=== PATIENT | female | born 1990 | race Caucasian/White ===

== ENCOUNTER → 2022-01-27 10:28 | Outpatient (BNVA) | payer MEDICAID, SELFPAY | PROVIDERS: PCP Internal Medicine; Visit Provider Physician Assistant Surgical | DX: Z13.89 Encounter for screening for other disorder (principal) ==

== ENCOUNTER → 2022-02-07 11:07 | Outpatient (BNVA) | payer MEDICAID, SELFPAY | PROVIDERS: PCP Internal Medicine; Visit Provider Surgery | DX: Z13.89 Encounter for screening for other disorder (principal) ==

== ENCOUNTER 2022-02-11 08:03 | Outpatient (REF) | payer OTHER, SELFPAY ==
--- NOTE | ~2022-02-11 | XR_ITS ---
EXAMINATION: XR CHEST CLINICAL INFORMATION: Morbid/severe obesity. COMPARISON: None TECHNIQUE: 2 views of the chest were obtained. FINDINGS: No significant abnormality is noted involving the heart, lungs, mediastinum, bony thorax or soft tissues. XR/XR chest 2V IMPRESSION: Unremarkable chest examination.
--- NOTE | 2022-02-11 08:15 | ECG_ITS ---
Test Reason : E66.01 Blood Pressure : / mmHG Vent. Rate : 083 BPM Atrial Rate : 083 BPM P-R Int : 138 ms QRS Dur : 088 ms QT Int : 396 ms P-R-T Axes : 048 088 027 degrees QTc Int : 465 ms Sinus rhythm with marked sinus arrhythmia Otherwise normal ECG No significant changes when compared with the previous EKG of 06 dec 2014. Referred By: Josh Graves Electronically Signed By:JAMARI CALIX
[2022-02-11 08:41] LABS: MANUAL DIFF FLAG NO
[2022-02-11 09:10] LABS: Basophils Absolute Auto 0.1 X10*3/uL (0.0-0.2); Basophils Percent Auto 0.6 % (0-2); Eosinophils Absolute Auto 0.1 X10*3/uL (0.0-0.4); Eosinophils Percent Auto 1.7 % (0-4); Hematocrit 37.4 % (37.0-47.0); Hemoglobin 11.9 g/dl (12.0-16.0); Imm Gran Abs Auto 0.03 X10*3/uL (0.00-0.03); Imm Gran Pct Auto 0.4 % (0.0-0.4); Lymphocytes Absolute Auto 1.9 X10*3/uL (1.2-4.9); Lymphocytes Percent Auto 22.9 % (20-40); Mean Corpuscular HGB Conc 31.8 g/dl (31.0-35.0); Mean Corpuscular Hemoglobin 25.8 pg (27.0-33.0); Mean Platelet Volume 10.4 fL (9.4-12.3); Monocytes Absolute Auto 0.4 X10*3/uL (0.1-1.2); Neutrophils Absolute Auto 5.8 x10*3/uL (2.0-8.3); Neutrophils Percent Auto 69.4 % (45-73); Platelet Count 333 X10*3/uL (160-400); Red Blood Count 4.62 X10*6/uL (4.20-5.50); Red Cell Distribution Width 15.2 % (11.0-16.0); White Blood Count 8.3 X10*3/uL (4.8-10.8)
[2022-02-11 09:21] LABS: Estimated Average Glucose 105 mg/dL; Hemoglobin A1c % 5.3 %
[2022-02-11 09:40] LABS: Alanine Aminotransferase 61 U/L (0-31); Albumin Level 4.3 g/dL (3.5-5.0); Alkaline Phosphatase 79 U/L (39-117); Anion Gap 11 (12-20); Aspartate Amino Transferase 38 U/L (5-31); Bilirubin Total 0.4 mg/dL (0.0-1.0); Blood Urea Nitrogen 9 mg/dL (9-16); C Reactive Protein 1.54 mg/dL (< or = 0.50); Calcium 9.6 mg/dL (8.4-10.2); Carbon Dioxide 30 mmol/L (22-29); Chloride 104 mmol/L (96-108); Cholesterol 169 mg/dL; Estimated Glomerular Filt Rate > 60; Glucose Random 115 mg/dL (60-115); HDL Cholesterol 31 mg/dL; Iron 27 mcg/dL (30-160); LDL Cholesterol Calculated 115 mg/dl; Percent Iron Saturation 7 % (15-50); Potassium 4.1 mmol/L (3.3-5.1); Sodium 141 mmol/L (135-145); Total Iron Binding Capacity 377 mcg/dL (228-428); Total Protein 7.4 g/dL (6.5-8.0); Triglycerides 119 mg/dL; Unsaturated Iron Binding 350 ug/dL
[2022-02-11 10:17] LABS: Ferritin 46 ng/mL (10-122); TSH reflex Free T4 0.86 uIU/mL (0.32-4.0); Vitamin D 25-OH Total 10.2 ng/mL (>30)
[2022-02-11 10:23] LABS: Folate 19.1 ng/mL (> or = 4.0); Vitamin B12 602 pg/mL (200-900)
[2022-02-11 16:28] LABS: Insulin 25 uU/mL (2-29)
[2022-02-12 15:21] LABS: Calcium (PTHI) 9.6 mg/dL (8.6-10.2); PTHI 90 pg/mL (16-77)
[2022-02-15 06:31] LABS: Zinc 71 mcg/dL (60-130)
[2022-02-18 16:41] LABS: Vitamin B1 6 nmol/L (8-30)
[2022-02-19 00:11] LABS: Vitamin A 34 mcg/dL (38-98)
== END 2022-02-11 08:04 | disposition home or self-care (01) ==
LOC: HO.XRAY 08:03
PROVIDERS: Visit Provider Surgery
DX: E66.01 Morbid (severe) obesity due to excess calories (principal)
CPT/HCPCS: 36415; 71046; 80053; 80061; 82306; 82607; 82728; 82746; 83036; 83525; 83540; 83970; 84425; 84443; 84590; 84630; 85025; 86140; 93005

== ENCOUNTER → 2022-03-06 08:04 | Outpatient (BNVA) | payer OTHER, SELFPAY | PROVIDERS: PCP Internal Medicine; Visit Provider Dietitian, Registered | DX: E66.01 Morbid (severe) obesity due to excess calories (principal); Z71.3 Dietary counseling and surveillance | CPT/HCPCS: 97802 ==

== ENCOUNTER → 2022-03-20 08:15 | Outpatient (BNVA) | payer OTHER, SELFPAY | PROVIDERS: PCP Internal Medicine; Visit Provider Physician Assistant | DX: Z13.89 Encounter for screening for other disorder (principal) ==

== ENCOUNTER → 2022-05-02 11:12 | Outpatient (BNVA) | payer OTHER, SELFPAY | PROVIDERS: PCP Internal Medicine; Visit Provider Dietitian, Registered | DX: E66.01 Morbid (severe) obesity due to excess calories (principal); Z71.3 Dietary counseling and surveillance | CPT/HCPCS: 97802 ==

== ENCOUNTER 2022-05-21 08:27 | Outpatient (REF) | payer OTHER, SELFPAY ==
--- NOTE | ~2022-05-21 | FL_ITS ---
EXAMINATION: XR FLUOROSCOPY UPPER GI WITH AIR CLINICAL INFORMATION: Obesity. Preop. COMPARISON: None TECHNIQUE: Upper GI was performed using thin and thick barium and effervescent granules. FINDINGS: Esophageal motility is normal. No reflux or hernia is seen. The stomach and duodenum are normal-appearing. No fold thickening, mass, ulcer or stricture is seen. FLUOROSCOPY TIME: 0.4 minutes DOSE AREA PRODUCT: 4.8 Jack per centimeter squared. 17 saved fluoroscopic images. FL/FL upper GI w air IMPRESSION: Unremarkable examination.
== END 2022-05-21 08:28 | disposition home or self-care (01) ==
LOC: HO.XRAY 08:27
PROVIDERS: Visit Provider Surgery
DX: Z01.818 Encounter for other preprocedural examination (principal); E66.01 Morbid (severe) obesity due to excess calories
CPT/HCPCS: 74246

== ENCOUNTER → 2022-06-30 10:55 | Outpatient (BNVA) | payer OTHER, SELFPAY | PROVIDERS: PCP Internal Medicine; Visit Provider Physician Assistant Surgical | DX: Z11.0 Encounter for screening for intestinal infectious diseases (principal) | CPT/HCPCS: 99211 ==

== ENCOUNTER 2022-06-30 16:14 | Outpatient (REF) | payer OTHER, SELFPAY ==
[2022-07-01 11:20] LABS: H Pylori Breath Test Positive (Negative)
== END 2022-06-30 16:15 | disposition home or self-care (01) ==
LOC: HO.LNP 16:14
PROVIDERS: Visit Provider Surgery
DX: E66.01 Morbid (severe) obesity due to excess calories (principal)
CPT/HCPCS: 83013

== ENCOUNTER → 2022-07-08 14:43 | Outpatient (BNVA) | payer OTHER, SELFPAY | PROVIDERS: PCP Internal Medicine; Visit Provider Dietitian, Registered | DX: E66.01 Morbid (severe) obesity due to excess calories (principal); Z71.3 Dietary counseling and surveillance; Z68.41 Body mass index [BMI] 40.0-44.9, adult | CPT/HCPCS: 97803 ==

== ENCOUNTER 2022-08-19 09:13 | Outpatient (REF) | payer OTHER, SELFPAY ==
--- NOTE | ~2022-08-19 | US_ITS ---
EXAMINATION: US COMPLETE ABDOMEN WITH LIVER ELASTOGRAPHY CLINICAL INFORMATION: Obesity COMPARISON: Previous CT of the abdomen and pelvis March 2020 TECHNIQUE: Real-time imaging of the abdominal viscera. Noninvasive ultrasound liver fibrosis assessment is performed using Eleanor ElastPQ point quantification shear wave elastography (2D-SWE) with a C5-2 MHz transducer. Multiple elastography samples are obtained. FINDINGS: PANCREAS: Not well visualized due to overlying bowel gas. ABDOMINAL AORTA: The proximal, middle, and distal aortic segments are normal in caliber. INFERIOR VENA CAVA: Visualized portions are normal. LIVER: Enlarged echogenic liver probably representing fatty infiltration. Normal liver contour. No focal lesion or intrahepatic biliary duct dilatation. The right lobe measures 19 cm in length. The left lobe measures 13 cm in length. Portal flow is normal/hepatopedal. Shear wave liver elastography median stiffness is 1.5 m/s (reference: normal median stiffness is 1.3 m/s or less). IQR/median stiffness to assess sampling precision is 0.01 (reference: good quality data set is IQR/median stiffness of 0.15 or less). GALLBLADDER: Normal. The gallbladder is physiologically distended without evidence of stones, sludge, polyps, wall thickening or pericholecystic fluid. COMMON BILE DUCT: Normal in caliber measuring 0.4 cm in diameter. RIGHT KIDNEY: Normal. No hydronephrosis. No renal calculi or focal parenchymal lesions. The kidney measures 11 cm in maximum dimension. LEFT KIDNEY: Normal. No hydronephrosis. No renal calculi or focal parenchymal lesions. The kidney measures 12 cm in maximum dimension. SPLEEN: Upper normal-size. The spleen measures 13 cm in maximum dimension. FREE FLUID: None. US/US abdomen comp w elastography IMPRESSION: 1. Impression: Enlarged echogenic liver probably representing fatty infiltration. Upper normal-size spleen. Limited visualization of the pancreas. 2. Liver elastography: Adequate liver sampling. In the absence of other known clinical signs, rules out compensated advanced chronic liver disease. REFERENCE: Society of Radiologists in Ultrasound Liver Stiffness Thresholds (2020): LIVER STIFFNESS THRESHOLDS: *Liver Stiffness equal or less than 1.3 m/s: High probability of being normal. *Liver Stiffness less than 1.7 m/s: In the absence of other known clinical signs, rules out compensated advanced chronic liver disease. *Liver Stiffness 1.7-2.1 m/s: Suggestive of compensated advanced chronic liver disease but need further test for confirmation. *Liver Stiffness over 2.1 m/s: Rules in compensated advanced chronic liver disease. *Liver Stiffness over 2.4 m/s: Suggestive of clinically significant portal hypertension. QUALITY OF DATA SET: *IQR/Median value equal or less than 0.15 implies a quality data set. *IQR/Median value over 0.15 implies a poor quality data set. SIGNIFICANT CHANGE FROM PRIOR EXAM: Significant change if liver stiffness measurement is 10% or greater from prior exam. OTHER CONSIDERATIONS: The stage of liver fibrosis may be overestimated in the setting of acute hepatitis, liver inflammation, elevated liver function tests, hepatic vascular congestion, obstructive cholestasis, non-fasting state, and infiltrative diseases such as amyloidosis and lymphoma. In some patients with NAFLD, the liver stiffness thresholds for compensated advanced chronic liver disease may be lower. In causes other than viral hepatitis and NAFLD, liver stiffness thresholds are not well established.
== END 2022-08-19 09:14 | disposition home or self-care (01) ==
LOC: HO.US 09:13
PROVIDERS: Visit Provider Surgery
DX: Z01.818 Encounter for other preprocedural examination (principal); E66.01 Morbid (severe) obesity due to excess calories
CPT/HCPCS: 76705; 76981

== ENCOUNTER → 2022-10-03 10:06 | Outpatient (BNVA) | payer OTHER, SELFPAY | PROVIDERS: PCP Internal Medicine; Visit Provider Physician Assistant Surgical | DX: Z11.0 Encounter for screening for intestinal infectious diseases (principal) | CPT/HCPCS: 99211 ==

== ENCOUNTER 2022-10-03 14:48 | Outpatient (REF) | payer OTHER, SELFPAY ==
[2022-10-04 14:57] LABS: H Pylori Breath Test Positive (Negative)
== END 2022-10-03 14:49 | disposition home or self-care (01) ==
LOC: HO.LNP 14:48
PROVIDERS: Visit Provider Physician Assistant Surgical
DX: E66.01 Morbid (severe) obesity due to excess calories (principal)
CPT/HCPCS: 83013

== ENCOUNTER 2022-10-17 11:02 | Outpatient (REF) | payer OTHER, SELFPAY ==
[2022-10-17 11:25] LABS: MANUAL DIFF FLAG NO
[2022-10-17 11:51] LABS: Basophils Absolute Auto 0.1 X10*3/uL (0.0-0.2); Basophils Percent Auto 0.6 % (0-2); Eosinophils Absolute Auto 0.2 X10*3/uL (0.0-0.4); Eosinophils Percent Auto 1.7 % (0-4); Hematocrit 41.8 % (37.0-47.0); Hemoglobin 13.3 g/dl (12.0-16.0); Imm Gran Abs Auto 0.02 X10*3/uL (0.00-0.03); Imm Gran Pct Auto 0.2 % (0.0-0.4); Lymphocytes Absolute Auto 2.6 X10*3/uL (1.2-4.9); Lymphocytes Percent Auto 29.4 % (20-40); Mean Corpuscular HGB Conc 31.8 g/dl (31.0-35.0); Mean Corpuscular Volume 78.6 fL (80.0-98.0); Mean Platelet Volume 10.7 fL (9.4-12.3); Monocytes Absolute Auto 0.5 X10*3/uL (0.1-1.2); Monocytes Percent Auto 5.1 % (2-11); Neutrophils Absolute Auto 5.5 x10*3/uL (2.0-8.3); Platelet Count 318 X10*3/uL (160-400); Red Blood Count 5.32 X10*6/uL (4.20-5.50); Red Cell Distribution Width 15.6 % (11.0-16.0); White Blood Count 8.8 X10*3/uL (4.8-10.8)
[2022-10-17 12:02] LABS: INTERNATIONAL NORM RATIO 1.1 (0.9-1.1); Prothrombin Time 12.4 SEC (10.0-13.1)
[2022-10-17 12:03] LABS: Partial Thromboplastin Time 35.9 SEC (26.0-36.4)
[2022-10-17 12:50] LABS: Estimated Average Glucose 108 mg/dL; Hemoglobin A1c % 5.4 %
[2022-10-17 14:21] LABS: Alanine Aminotransferase 38 U/L (0-31); Albumin Level 4.5 g/dL (3.5-5.0); Alkaline Phosphatase 89 U/L (39-117); Anion Gap 13 (12-20); Aspartate Amino Transferase 23 U/L (5-31); Bilirubin Total 0.4 mg/dL (0.0-1.0); Blood Urea Nitrogen 8 mg/dL (9-16); C Reactive Protein 1.51 mg/dL (< or = 0.50); Calcium 9.8 mg/dL (8.4-10.2); Carbon Dioxide 28 mmol/L (22-29); Chloride 99 mmol/L (96-108); Cholesterol 204 mg/dL; Estimated Glomerular Filt Rate > 60; Glucose Random 92 mg/dL (60-115); HDL Cholesterol 35 mg/dL; Insulin 12 uU/mL (2-29); LDL Cholesterol Calculated 149 mg/dl; Potassium 4.2 mmol/L (3.3-5.1); Sodium 136 mmol/L (135-145); TSH reflex Free T4 1.22 uIU/mL (0.32-4.0); Total Protein 7.8 g/dL (6.5-8.0); Triglycerides 101 mg/dL
== END 2022-10-17 11:03 | disposition home or self-care (01) ==
LOC: HO.LAB 11:02
PROVIDERS: PCP Surgery; Visit Provider Surgery
DX: E66.01 Morbid (severe) obesity due to excess calories (principal)
CPT/HCPCS: 36415; 80053; 80061; 83036; 83525; 84443; 85025; 85610; 85730; 86140; 86850; 86900; 86901

== ENCOUNTER 2022-10-23 06:52 | Inpatient (IN) | payer OTHER, SELFPAY ==
[2022-10-16 10:18] VITALS: BMI 40.0
--- NOTE | 2022-10-18 18:06 | MHC.SHP ---
Pre-Procedural Eval Section A Date of Service: 10/18/22 The patient is an INPATIENT: Yes The History & Physical has been completed within 30 days and I have reviewed it.: Yes Section B Chief Complaint: obesity Relevant Family History (Specify if Yes): No Relevant Social History: None Present Medications: None Medical History: No relevant PMH History of Previous Operations: No relevant previous surgery Allergies: Allergies Allergy/AdvReac Type Severity Reaction Status Date / Time No Known Allergies Allergy Verified 10/15/22 12:06 Review of Systems Sugical H&P ROS: Negative: Constitution, Cardiovascular, Respiratory, Neurological, Psychiatric, Hem-Onc, Allergic/Immunologic, Gastrointestinal, Genitourinary, Musculoskeletal, Integumentary, Endocrine and Eyes/Ears/Nose/Throat Exam Surgical H&P Exam: Normal: HEENT, Normal: Heart, Normal: Lungs, Normal: Extremities, Normal: Abdomen, Normal: Skin and Normal: Neurological Plan Diagnosis/Plan: Unchanged I have reviewed the history and physical and performed a pertinent physical examination on my patient. No changes have occurred unless specified.
--- NOTE | 2022-10-22 10:22 | P.CONAN_ITS ---
HPI - Anesthesia Eval Consult details Narrative: 31yo F for Gastrectomy Sleeve,EGD,poss diaphragmatic hernia,poss ventral hernia,poss open, PMFSH Active Problems Active Problems: All Active Problems (Updated 10/16/22 @ 09:52 by Fátima Cook RN) Vitamin B1 deficiency (Acute) Vitamin D deficiency (Acute) Vitamin A deficiency (Acute) H. pylori infection (Acute) Obesity (Acute) BMI 39.0-39.9,adult (Acute) Morbid obesity (Acute) Past Medical History Medical History (Updated 10/25/22 @ 00:03 by Clary Garcia) COVID-19 vaccine series started H. 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 Do you presently have visiting nurse or other home services: No Alcohol intake: current Alcohol intake frequency: does not drink Patient Tobacco Use Status: Former Tobacco user Quit Date: 2019/is currently vaping Tobacco use type: Cigarette e-Cigarette/Vaping Use: Currently Using Meds Allergies Allergy/AdvReac Type Severity Reaction Status Date / Time No Known Allergies Allergy Verified 10/28/22 13:23 Exam Exam Date and Time: October 22, 2022 1022 Height,Weight and Vital Signs: Height 5 ft 4.5 in Weight 107.501 kg Pertinent Lab Results Pertinent Lab Results: Laboratory Tests 10/17/22 10/17/22 11:25 11:25 WBC 8.8 Hgb 13.3 Hct 41.8 Plt Count 318 Sodium 136 Potassium 4.2 Chloride 99 Carbon Dioxide 28 BUN 8 L Creatinine 0.64 Narrative Narrative: EKG 01/2022 Vent. Rate : 083 BPM ? ? Atrial Rate : 083 BPM ?? P-R Int : 138 ms? QRS Dur : 088 ms ? ? QT Int : 396 ms ? ? ? P-R-T Axes : 048 088 027 degrees ?? QTc Int : 465 ms ? Sinus rhythm with marked sinus arrhythmia Otherwise normal ECG No significant changes when compared with the previous EKG? of 06 dec 2014. Assessment and Plan Assessment Anesthesia Assessment: Chart Reviewed
[2022-10-22 14:37] LABS: COVID-19 Test Negative (Negative); IDNOW Serial# BCCEAD1C
[2022-10-23] VITALS (16 sets, daily range): BP systolic 112–154; BP diastolic 58–97; PULSE 69–104; RESP 11–18; TEMP 36.3–36.7; O2SAT 96–100
[2022-10-23 07:06] LABS: UPreg QC Valid YES; Urine Pregnancy NEGATIVE (NEGATIVE)
[2022-10-23] MEDS: Lactated Ringers 1,000 ML 100 ML IVCONT (07:21)
[2022-10-23] MEDS: Lactated Ringers 1,000 ML 999 ML IV (07:21)
--- NOTE | 2022-10-23 07:23 | PC.NURSE ---
patient states yellow liquid results from bowel prep
--- NOTE | 2022-10-23 08:15 | P.BOP_ITS ---
Brief Operative Note Date of Service: 10/23/22 Pre-op diagnosis: Severe obesity with comorbidities (see below) Post-op diagnosis: same Procedure: INITIAL PATIENT BMI ON PRESENTATION AT OUR OFFICE: 43.4 kg/m2 LAST BMI BEFORE SURGERY: 39.8 kg/m2 COMORBIDITIES: liver steatosis and live fibrosis ?The patient presented to the Weight Management Program with significant obesity that was negatively impacting the patient's comorbidities as listed above.? The program is a phased program with a special focus on preoperative medical weight management to promote substantial weight loss and prepare the patients for the second phase of the program: bariatric surgery. The patient participated in an intensive weekly lifestyle ?intervention and exercise program during which the patient ?has lost between the initial office visit and the last preoperative visit 23.9 lbs, or 9.31% of initial actual body weight. It was deemed appropriate for the patient to now have bariatric surgery. In light of the current Covid-19 pandemic and the well documented strong association of obesity and increased risk of worse outcomes if infected with Covid-19 (REFERENCES: https://pubmed.ncbi.nlm.nih.gov/61348189/ ,? https://pubmed .ncbi.nlm.nih.gov/96270299/ ), any delay in undergoing bariatric surgery may lead to the patient's worsening health condition and increased?risk of more severe Covid-19 disease if infected. In addition a recent?study from [facility] published in [facility] [facility] on 11/11/2021 ([email or web address]) found that, among patients with obesity, substantial weight loss achieved with surgery was associated with improved outcomes of COVID-19 infection. The findings suggest that obesity can be a modifiable risk factor for the severity of COVID-19 infection. In addition, the patient met the BMI-criteria for bariatric surgery based on the BMI on initial presentation. The patient should not be penalized for achieving s uch weight loss because ?it is not sustainable long-term without surgical intervention and it was achieved in preparation for bariatric surgery ?under my direction and based on my published research ( [email or web address]).[email or web address] and? https://www.soard.org/article/I9394-9467(20)79851-X/pdf ) ?that a 10% preoperative weight loss improves long-term weight loss after surgery and reduces perioperative complications.? Insurance carriers such as [facility] have endorsed my recommendations ?and have included in their policies criteria to include a 10% preoperative weight loss requirement. PROCEDURE: Esophago-gastroscopy, laparoscopic repair of incarcerated diaphragmatic hernia, laparoscopic lysis of adhesions, laparoscopic sleeve gastrectomy and laparoscopic gastropexy INDICATIONS: This is a 31 year-old female who was electively scheduled for laparoscopic, possibly open sleeve gastrectomy. The risks and complications of the procedure were discussed with the patient in advance, particularly the possibility of ; pulmonary embolism; staple line leak; bleeding; GERD; cardiac, pulmonary, or renal complications; as well as long-term problems such as insufficient weight loss, vitamin deficiency, strictures, or ulcers. The patient understood all the risks, and was in agreement to proceed with surgery. DESCRIPTION OF PROCEDURE: After informed consent was obtained from the patient, the patient was given preoperative antibiotics, and was transferred to the operating room. After successful induction of general anesthesia, pneumatic compression devices were placed on both lower extremities. An upper endoscopy was performed next. The oropharynx and esophagus appeared to be within normal limits. There was no diaphragmatic hernia present consistent with the findings of the preoperative upper GI. The stomach was entered. Then after all fluid and air were suctioned and the stomach was fully decompressed, the scope was withdrawn and secured in the mid esophagus. The patient was then prepped and draped in the usual sterile manner, and abdominal access was established at the right upper quadrant with the Cristiana technique. A 12 mm blunt port was inserted, and the abdomen was insufflated with CO2 to a pressure of 15 mmHg. Under direct visualization, additional ports were placed, specifically two 5 mm Versi-step ports to the left upper quadrant, and a 5 mm Versi-Step port to the right upper quadrant. 1% lidocaine plain was used to infiltrate all port sites as well as all fascia defects. Using the EndoClose suture passer device, I placed a #1 Polysorb tie across the falciform ligament in order to retract it up against the abdominal wall and prevent injury of the ligament with our instruments during the procedure. Following that, the patient was placed in a steep reverse Trendelenburg position. An additional 5 mm port was placed to the right flank for the Mediflex retractor that was used to retract the left lobe of the liver. The gastro-esophageal fat pad was opened with the ultrasonic device (Thunderbeat, Olympus) and the anterior esophagus and hiatus were exposed. The angle of His was opened with the ultrasonic device the fundus of the stomach from any diaphragmatic and splenic attachments. I then opened the gastrocolic ligament between the transverse colon and the greater curvature of the stomach with the ultrasonic device to enter the lesser sac and facilitate the ligation of the short gastric vessels. I started at a mid-point along the greater curvature and using the Thunderbeat, all short gas tric vessels were divided all the way to the angle of His until the left dale was completely dissected at its entirety. I then divided the gastro-colic ligament distally to a distance of about 3-4 cm proximal to the pylorus. The stomach was then divided transversely with one Endo MARIANO-45 purple, one MARIANO- 45 orange load and three MARIANO-60 articulating orange loads using the AEON stapler and loads. Every effort was made that the gastric sleeve had a tubular shape and an even caliber throughout. Once the sleeve resection was completed, the staple line of the gastric sleeve was reinforced with Hemoclips. The resected stomach was retrieved without difficulty from the Cristiana port. A gastropexy was then performed in order to prevent postoperative GERD and partial gastric volvulus. Several interrupted 2.0 Surgidac sutures were placed between the sleeve's staple line and the previously divided greater omentum and gastro-colic ligament using the Endo-Stitch device. ?An upper endoscopy was performed. There was no narrowing at the GE junction. The scope was easily advanced all the way to the pylorus which was clearly visualized. There was no narrowing anywhere and the sleeve's caliber was even throughout. The sleeve's staple line was inspected and there was no evidence of ischemia, bleeding or dehiscence. At that point the gastroscope was withdrawn from the patient?s mouth while we were decompressing the bowel and the stomach from any remaining air. I looked into the lesser sac to see how the sleeve was situating and it was situating well. There was no bleeding from the staple line, spleen, or short gastric vessels. The Mediflex retractor was removed, and the undersurface of the liver was inspected and there was no bleeding. The patient was placed in supine position. I closed the fascial defect of the 12 mm port site with a figure of eight #1 Polysorb suture. Then 30cc of Ropivacaine plain with 10 mg of Dexamethasone were used to infiltrate the fascial closure as well as all skin incisions. A total of 5ml of Zynrelef was applied in the Cristiana wound and 1ml for each the right side 5 mm Versi-step ports. At this point, the abdomen was deflated, all ports were removed under direct vision, and no bleeding was noted from any of the port sites. The skin incisions were irrigated with saline and were closed with 4-0 absorbable monofilament sutures. Steri-Strips and OpSites were used to cover all incisions. The patient was extubated and was transferred in stable condition to the recovery room for further care. I was present and performed all amezcua parts of the procedure. Mr. Crawford was the first calender worker. There were no residents to assist with this case. Ari Graves MD, PhD, FACS Surgeon: Josh Graves MD Anesthesia: GETA, local and other (TAP block and 7ml Zynrelef) Was an Coal Carrier used for this Procedure?: No Coal Carrier: Henry Crawford Estimated blood loss (mL): 10 IV fluids (mL): 2,500 Urine output (mL): 0 (No Thomas to record output) Pathology: other (Stomach) Condition: stable Disposition: PACU
--- NOTE | 2022-10-23 08:18 | PM.PNGS ---
Subjective Subjective Date of Service: 10/24/22 Interval history: Patient has mild incisional pain, but was able to ambulate and use the incentive spirometer. She is tolerating phase 1 bariatric diet Physical Exam Vital Signs: Vital Signs: Last Vital Signs Temp 97.9 F 10/23/22 07:52 Pulse 79 10/23/22 07:52 Resp 18 10/23/22 07:52 BP 112/72 10/23/22 07:52 Pulse Ox 97 10/23/22 07:52 O2 Del Method 10/23/22 07:52 BMI result Body Mass Index 40.0 GI: Inspection: Yes normal to inspection, Yes incision (clean, dry and intact) and Yes obesity Palpation (GI): Soft to palpation Extrem: Right lower extremity: normal to inspection (no calf tenderness) Left lower extremity: normal to inspection (no calf tenderness) Objective Data Active Medications Lactated Ringer's (Lr) 1,000 mls @ 100 mls/hr IVCONT .Q10H RHINA Last Admin: 10/23/22 07:21 Dose: 100 mls/hr Documented By: JOSE Lactated Ringer's (Lr) 1,000 mls @ 999 mls/hr IV .Q1H1M RHINA Stop: 10/23/22 09:00 Last Admin: 10/23/22 07:21 Dose: 999 mls/hr Documented By: JOSE Labs CBC & Chem 7: 10/24/22 05:34 10/24/22 05:34 Labs: Laboratory Results - last 24 hr 10/17/22 10/22/22 10/23/22 11:18 14:09 06:30 Urine Test NEGATIVE COVID-19 (BELEN) Negative COVID-19 Clin Com See Note Blood Type O Positive Antibody Screen NEGATIVE Procedures Date of Service Date of Service: 10/24/22 Progress Note: A&P Assessment and plan (1) Obesity: Status: Acute Assessment and Plan: s/p laparoscopic sleeve gastrectomy and gastropexy Doing well Check am labs. If OK, will discharge home? (2) BMI 39.0-39.9,adult: Status: Acute (3) Steatosis, liver: Status: Acute (4) Liver fibrosis: Status: Acute (5) Status post sleeve gastrectomy: Status: Acute Time Spent With Patient Time: Total time spent is greater than 50% in coordination of care (as documented) at patient's floor/unit and/or counseling patient: Quality Stroke Does the patient have a stroke diagnosis?: No VTE Prior VTE?: No VTE Risk Level:: Surgical - moderate VTE Device Contraindication: N/A - Device Ordered VTE Drug Contraindication: Treatment Not Indicated
--- NOTE | 2022-10-23 11:29 | P.DS_ITS ---
DS: Providers Provider Date of Service: 10/24/22 Date of admission: 10/23/22 06:52 Primary care physician: Unknown Physician DS: Diagnosis Discharge Diagnosis (1) Obesity: Status: Deleted (2) BMI 39.0-39.9,adult: Status: Deleted (3) Steatosis, liver: Status: Acute (4) Liver fibrosis: Status: Acute (5) Status post sleeve gastrectomy: Status: Acute DS: Summary Hospital Course Hospital Course: ADMITTING DIAGNOSIS: morbid obesity ? DISCHARGE DIAGNOSIS: same, s/p laparoscopic sleeve gastrectomy ? PAST SURGICAL HISTORY: cesarian section ? PROCEDURE: upper endoscopy, laparoscopic sleeve gastrectomy ? DISCHARGE SUMMARY: ? History of Present Illness: ? The patient is a?31 year-old woman with a BMI of?43.3 kg/m2 and associated co- morbidities as described above. The patient had extensive work-up,lost?20 lbs preoperatively and was electively scheduled for laparoscopic, possible open sleeve gastrectomy and gastropexy. Risks and complications of the surgery were discussed with the patient in advance, particularly the possibility of , pulmonary embolism, anastomotic leak, bleeding, bowel injury, GERD, cardiac, renal or pulmonary complications. The patient understood all the risks and was in agreement with the surgical plan. ? Hospital Course: ? The patient underwent an uneventful laparoscopic sleeve gastrectomy with gastropexy on the day of admission. Postoperatively, the patient was transferred to the surgical floor. The patient received IV Acetaminophen and IV dilaudid for pain control. Patient was started on bariatric phase 1 diet POD #0. On postoperative day one, the patient was feeling well without nausea, vomiting, fevers, or tachycardia. The patient had some mild incisional pain and the abdomen was soft. ? On the morning of postoperative day one, the patient was continued on 1 ounce of water or ice every half hour. During the day, the patient did fairly well, having some incisional pain, but able to ambulate adequately and to tolerate liquids well. ? Since the patient is doing well, we decided that the patient was ready to be discharged. The patient was given instructions to follow-up with me next week and to call my office for any fever over 101, persistent abdominal pain, nausea, vomiting, GERD, symptoms of DVT such as calf tenderness, or leg swelling, or pulmonary embolism such as chest pain or shortness of breath. The patient was also instructed to drink 40-60 ounces of liquids per day using the 1-ounce cups. The patient had been given prescriptions for Tylenol for pain, Zofran prn for nausea, and pantoprazole and carafate previously. The patient was encouraged to ambulate and use the incentive spirometer. The patient was allowed to shower, but no baths, and encouraged to stay active at home. All of these instructions were given to the patient personally. All questions were answered and the patient understood all instructions, the instructions were also given to the patient in print. Time Spent with Patient Time attestation: Total time spent providing and/or coordinating discharge services: Discharge coordination time: Less than 30 minutes Quality: Safe Use of Opioids Does Pt have an Active Cancer Diagnosis on the Problem List?: No Quality: Stroke Does the patient have a stroke diagnosis?: No Physical Exam Vital Signs: Vital Signs: Last Vital Signs Temp 97.9 F 10/23/22 07:52 Pulse 79 10/23/22 07:52 Resp 18 10/23/22 07:52 BP 112/72 10/23/22 07:52 Pulse Ox 97 10/23/22 07:52 O2 Del Method 10/23/22 07:52 BMI result Body Mass Index 40.0 DS: Data Data Completed and Pending Pending studies at discharge: Pending at discharge 10/23/22 10:32 Surgical [PTH] Routine Labs on day of discharge: Laboratory Results - last 24 hr 10/17/22 10/22/22 10/23/22 11:18 14:09 06:30 Urine Test NEGATIVE COVID-19 ([facility]) Negative COVID-19 Clin Com See Note Blood Type O Positive Antibody Screen NEGATIVE Discharge Plan Discharge Anticipated Discharge Date/Time: 10/24/22 10:31 Patient Disposition: Home, Self-Care Discharge Diagnosis: s/p laparoscopic sleeve gastrectomy Referrals: Physician,Unknown J [Physician] - 1 Week Discharge Medications: Continued pantoprazole 40 mg tablet,delayed release (DR/EC) 40 mg PO DAILY Qty: 30 2RF sucralfate 100 mg/mL suspension 10 ml PO BID Qty: 400 2RF ondansetron HCl 4 mg tablet 4 mg PO Q12H Qty: 20 0RF Discontinued cholecalciferol (vitamin D3) 125 mcg (5,000 unit) capsule 125 mcg PO DAILY Qty: 30 2RF thiamine HCl (vitamin B1) 100 mg tablet 100 mg PO DAILY Qty: 30 2RF polyethylene glycol 3350 [Miralax] 17 gram powder in packet 17 g PO DAILY Qty: 14 0RF Rx Instructions: Mix each packet with 8oz of water and do 7 packets on 10/21/22 and another 7 packets on 10/22/22 Discharge Orders: Discharge Order (Routine); Ordered 10/24/22 Ordered By: Josh Graves Activity on Discharge: No heavy lifting Stand Alone Forms: Patient Portal Discharge page Care Plan Goals: weight loss Health Concerns: morbid obesity Plan of Treatment: No tub baths, sex or returning to work until discussed at first post op appointment. No exercise, alcohol, tobacco or illegal drug use. Continue to use incentive spirometer hourly while awake. Walk in home for 5- 10 minutes every 2 hours during the first week. Follow all instructions in the bariatric handbook and call with any questions.Discharge Instructions 1. Please call your doctor or come back to the emergency room should any new symptoms arise. 2. You will receive a courtesy call from [facility] 24-48 hours after discharge. 3. Activity: abstain from alcohol, practice limited stair climbing, no bending, no driving, no exercise, no illicit substances, no lifting, no sex, no tub bath, no work. 4. Diet: continue as discussed with Dr. Graves. 5. Dressing Change/Wound Care: Your incision is covered by clear bandages and guaze underneath. If the area is tender, you may apply an ice pack for short intervals (no more than 20 minutes on, followed by at least 20 minutes off). Do not apply heat. Do not use creams, lotions, or topical antibiotics unless instructed to do so by your surgeon. These can cause infection or allergic reaction. 6. Call your doctor if: - Your temperature exceeds 101.5 F - You experience excessive pain or swelling - You have an unexpected reaction to medication - You have excessive bleeding - You experience continued vomiting/nausea - Your incision begins to separate - Your incision shows signs of infection such as increased redness, swelling, excessive pain, heat, or drainage (light blood or clear fluid is normal) 7. General instructions: No lifting greater than 5 lbs for the next 4 weeks[address] within 24 hours of taking narcotic pain medications. If you do not move your bowels in the next 2 days, please take milk of magnesia over the counter. Please follow the post op diet and do not advance your diet until you are seen in the office in about 2 weeks. Please walk around your home every hour or two to prevent blood clots from forming in your legs. You do not need to wake from sleeping to walk. Please sleep in a bed or couch to prevent kinking at the hips and knees. Please take your incentive spirometer (your lung production or plant engineer) home with you and use it for the next few days to prevent pneumonias. You may shower, no hot tubs, baths or swimming pools. Please call the office with any questions or concerns such as increasing abdominal pain, fever, chills, shortness of breath, chest pain, leg pain or swelling, or redness or drainage from your incisions. Please stay on stage 3 diet which includes sugar free clear liquids such as ice pops and jello and broth and crystal light. Avoid all carbonation. Please drink 3 protein shakes with at least 25-30 grams of protein daily or 3 of the Celebrate 4:1 shakes which can be purchased in our office. The Celebrate shakes have all of the bariatric vitamins you need if you consume these shakes. If you are drinking other protein shakes, you will need to purchase the Celebrate multivitamins and calcium that we provide in the office (they will provide all the vitamins you need). Please make sure you are consuming at least 40-60 ounces of water in addition to your 3 protein shakes daily. Do not hesitate to contact the office with any questions at . The patient's medical history has been reviewed and they are considered low risk for post op DVT and therefore DVT prophylaxis is not considered necessary. Travel after surgery was reviewed. The patient has not disclosed any travel plans during the first 30 days after surgery and they have been advised that within the first 30 days after surgery any bus, plane, train or car travel over 2 hours in duration is contraindicated due to the possibility of developing blood clots from immobility. Any travel, needs to include periods of ambulation of 10 minutes in duration every 2 hours.? The patient was instructed to discuss any plans for travel during this period with their bariatric surgeon. Assessment: stable s/p laparoscopic sleeve gastrectomy Discharge Date/Time: 10/24/22 11:14
[2022-10-23] MEDS: Famotidine/PF 20 MG/2 ML VIAL IVPUSH ×2 (11:45→19:46)
[2022-10-23 12:07] LABS: Hematocrit 41.6 % (37.0-47.0); Hemoglobin 13.6 g/dl (12.0-16.0)
[2022-10-23 12:19] LABS: Anion Gap 16 (12-20); Blood Urea Nitrogen 9 mg/dL (9-16); Calcium 8.9 mg/dL (8.4-10.2); Carbon Dioxide 25 mmol/L (22-29); Chloride 102 mmol/L (96-108); Creatinine Clr Calc Pharmacy 134.2; Estimated Glomerular Filt Rate > 60; Glucose Random 102 mg/dL (60-115); Potassium 4.1 mmol/L (3.3-5.1); Sodium 139 mmol/L (135-145)
--- NOTE | 2022-10-23 14:51 | PHA.MEDREC ---
Pharmacy Consult ? Medication Reconciliation Pharmacy has reviewed the medication reconciliation completed by nursing. Marilynn George, TiffanieD
[2022-10-23] MEDS: ceFAZolin Sodium/Dextrose,Iso 2 GM/50 ML PIGGYBACK IV (15:43)
[2022-10-23] MEDS: Acetaminophen 1,000 MG/100 ML PIGGYBACK 16.7 MG IV ×2 (17:04→21:40)
[2022-10-23] MEDS: ondansetron HCL 4 MG/2 ML VIAL IVPUSH ×2 (17:04→23:40)
[2022-10-23] MEDS: 0.9 % Sodium Chloride Flush 3 ML SYRINGE IVFLUSH (19:46)
[2022-10-23] MEDS: Lactated Ringers 1,000 ML 125 ML IVCONT (23:40)
[2022-10-24 03:13] VITALS: BP 118/65; PULSE 68; RESP 18; TEMP 36; O2SAT 98
[2022-10-24] MEDS: Acetaminophen 1,000 MG/100 ML PIGGYBACK 16.7 MG IV (03:21)
[2022-10-24 05:55] LABS: MANUAL DIFF FLAG NO
[2022-10-24 05:59] LABS: Basophils Percent Auto 0.1 % (0-2); Hematocrit 37.4 % (37.0-47.0); Imm Gran Abs Auto 0.06 X10*3/uL (0.00-0.03); Imm Gran Pct Auto 0.5 % (0.0-0.4); Lymphocytes Absolute Auto 1.2 X10*3/uL (1.2-4.9); Lymphocytes Percent Auto 10.5 % (20-40); Mean Corpuscular HGB Conc 32.1 g/dl (31.0-35.0); Mean Corpuscular Hemoglobin 24.7 pg (27.0-33.0); Mean Platelet Volume 10.7 fL (9.4-12.3); Monocytes Absolute Auto 0.6 X10*3/uL (0.1-1.2); Monocytes Percent Auto 5.4 % (2-11); Neutrophils Absolute Auto 9.6 x10*3/uL (2.0-8.3); Neutrophils Percent Auto 83.5 % (45-73); Platelet Count 321 X10*3/uL (160-400); Red Blood Count 4.86 X10*6/uL (4.20-5.50); Red Cell Distribution Width 15.9 % (11.0-16.0); White Blood Count 11.5 X10*3/uL (4.8-10.8)
[2022-10-24 06:32] LABS: Anion Gap 14 (12-20); Blood Urea Nitrogen 5 mg/dL (9-16); Carbon Dioxide 25 mmol/L (22-29); Chloride 103 mmol/L (96-108); Creatinine Clr Calc Pharmacy 155.9; Estimated Glomerular Filt Rate > 60; Glucose Random 117 mg/dL (60-115); Potassium 4.6 mmol/L (3.3-5.1); Sodium 137 mmol/L (135-145)
[2022-10-24] MEDS: ondansetron HCL 4 MG/2 ML VIAL IVPUSH (07:59)
[2022-10-24] MEDS: Famotidine/PF 20 MG/2 ML VIAL IVPUSH (07:59)
[2022-10-24 08:00] VITALS: BP 124/64; PULSE 62; RESP 17; TEMP 36.4; O2SAT 100
[2022-10-24] MEDS: Lactated Ringers 1,000 ML 125 ML IVCONT (08:07)
--- NOTE | 2022-10-24 11:40 | HO.POSTANES ---
Post Anesthesia Evaluation Post Anesthesia Evaluation Vital Signs: Vital Signs Temp Pulse Resp BP Pulse Ox O2 Del Method 10/24/22 10:41 Room Air 10/24/22 08:00 97.6 F 62 17 124/64 100 Room Air 10/24/22 03:13 96.8 F 68 18 118/65 98 Room Air Anesthesia: General Endotracheal-GETA Mental Status: Awake Pain Control: Satisfactory Nausea/Vomiting: None Hydration: Adequate Anesthesia-Related Issues: No Anes. Related Issues
== END 2022-10-24 11:14 | disposition home or self-care (01) | DRG 403 ==
LOC: HO.SSSA 11:32 → HO.S3 15:21
PROVIDERS: Nurse Practitioner; Physician Assistant Surgical; Admitting Provider Surgery; PCP Internal Medicine; Visit Provider Surgery
PROC: 0DB64Z3 Excision of Stomach, Percutaneous Endoscopic Approach, Vertical (ICD-10-PCS; CPT 43845; principal; 2022-10-23 08:10)
DX: E66.01 Morbid (severe) obesity due to excess calories (principal); K74.00 Hepatic fibrosis, unspecified; K76.0 Fatty (change of) liver, not elsewhere classified; Z68.39 Body mass index [BMI] 39.0-39.9, adult; Z20.822 Contact with and (suspected) exposure to COVID-19; Z87.891 Personal history of nicotine dependence; Z79.899 Other long term (current) drug therapy
CPT/HCPCS: 36415; 80048; 81025; 85014; 85018; 85025; 86850; 86900; 86901; 87635; 88307; 88342; A4649; C9088; J0131; J0690; J1100; J1170; J2250; J2405; J2795; J3010

== ENCOUNTER → 2022-11-11 13:58 | Outpatient (BNVA) | payer OTHER, SELFPAY | PROVIDERS: PCP Internal Medicine; Visit Provider Dietitian, Registered | DX: E66.01 Morbid (severe) obesity due to excess calories (principal); A04.8 Other specified bacterial intestinal infections; U07.0 Vaping-related disorder; Z68.36 Body mass index [BMI] 36.0-36.9, adult | CPT/HCPCS: 97803 ==

== ENCOUNTER → 2022-11-26 16:10 | Outpatient (BNVA) | payer OTHER, SELFPAY | PROVIDERS: PCP Internal Medicine; Visit Provider Dietitian, Registered | DX: E66.9 Obesity, unspecified (principal) | CPT/HCPCS: 97803 ==

== ENCOUNTER → 2022-12-04 16:00 | Outpatient (BNVA) | payer OTHER, SELFPAY | PROVIDERS: PCP Internal Medicine; Visit Provider Dietitian, Registered | DX: E66.9 Obesity, unspecified (principal); Z68.35 Body mass index [BMI] 35.0-35.9, adult | CPT/HCPCS: 97803 ==

== ENCOUNTER → 2022-12-23 15:34 | Outpatient (BNVA) | payer OTHER, SELFPAY | PROVIDERS: PCP Internal Medicine; Visit Provider Dietitian, Registered | DX: E66.9 Obesity, unspecified (principal); Z68.34 Body mass index [BMI] 34.0-34.9, adult; Z71.3 Dietary counseling and surveillance | CPT/HCPCS: 97803 ==

== ENCOUNTER → 2023-01-21 15:45 | Outpatient (BNVA) | payer OTHER, SELFPAY | PROVIDERS: PCP Internal Medicine; Visit Provider Dietitian, Registered | DX: E66.9 Obesity, unspecified (principal); Z68.33 Body mass index [BMI] 33.0-33.9, adult | CPT/HCPCS: 97803 ==

== ENCOUNTER → 2023-02-24 15:54 | Outpatient (BNVA) | payer OTHER, SELFPAY | PROVIDERS: PCP Internal Medicine; Visit Provider Dietitian, Registered | DX: E66.9 Obesity, unspecified (principal); Z68.31 Body mass index [BMI] 31.0-31.9, adult; Z90.3 Acquired absence of stomach [part of] | CPT/HCPCS: 97803 ==

== ENCOUNTER 2023-06-04 14:11 | Outpatient (REF) | payer OTHER, SELFPAY ==
[2023-06-04 15:31] LABS: MANUAL DIFF FLAG NO
[2023-06-04 15:54] LABS: Basophils Absolute Auto 0.1 X10*3/uL (0.0-0.2); Basophils Percent Auto 0.6 % (0-2); Eosinophils Absolute Auto 0.1 X10*3/uL (0.0-0.4); Eosinophils Percent Auto 1.3 % (0-4); Hematocrit 37.9 % (37.0-47.0); Imm Gran Abs Auto 0.02 X10*3/uL (0.00-0.03); Imm Gran Pct Auto 0.2 % (0.0-0.4); Lymphocytes Absolute Auto 2.2 X10*3/uL (1.2-4.9); Lymphocytes Percent Auto 26.4 % (20-40); Mean Corpuscular HGB Conc 31.7 g/dl (31.0-35.0); Mean Corpuscular Hemoglobin 25.7 pg (27.0-33.0); Mean Corpuscular Volume 81.2 fL (80.0-98.0); Mean Platelet Volume 11.4 fL (9.4-12.3); Monocytes Absolute Auto 0.4 X10*3/uL (0.1-1.2); Monocytes Percent Auto 5.2 % (2-11); Neutrophils Absolute Auto 5.5 x10*3/uL (2.0-8.3); Neutrophils Percent Auto 66.3 % (45-73); Platelet Count 326 X10*3/uL (160-400); Red Blood Count 4.67 X10*6/uL (4.20-5.50); Red Cell Distribution Width 14.8 % (11.0-16.0); White Blood Count 8.3 X10*3/uL (4.8-10.8)
[2023-06-04 16:50] LABS: Anion Gap 11 (12-20); Blood Urea Nitrogen 9 mg/dL (9-16); C Reactive Protein 0.26 mg/dL (< or = 0.50); Calcium 9.4 mg/dL (8.4-10.2); Carbon Dioxide 30 mmol/L (22-29); Chloride 105 mmol/L (96-108); Cholesterol 172 mg/dL; Estimated Glomerular Filt Rate > 60; Glucose Random 90 mg/dL (60-115); HDL Cholesterol 37 mg/dL; Iron 52 mcg/dL (30-160); LDL Cholesterol Calculated 116 mg/dl; Percent Iron Saturation 16 % (15-50); Potassium 4.3 mmol/L (3.3-5.1); Sodium 142 mmol/L (135-145); Total Iron Binding Capacity 333 mcg/dL (228-428); Triglycerides 95 mg/dL; Unsaturated Iron Binding 281 ug/dL
[2023-06-04 16:57] LABS: Estimated Average Glucose 88 mg/dL; Hemoglobin A1c % 4.7 %
[2023-06-04 16:58] LABS: Ferritin 21 ng/mL (10-122); Insulin 7 uU/mL (2-29); TSH reflex Free T4 0.36 uIU/mL (0.32-4.0); Vitamin D 25-OH Total 21.9 ng/mL (>30)
[2023-06-04 17:17] LABS: Folate 6.7 ng/mL (> or = 4.0); Vitamin B12 486 pg/mL (200-900)
[2023-06-08 14:58] LABS: Calcium (PTHI) 9.4 mg/dL (8.6-10.2); PTHI 120 pg/mL (16-77)
[2023-06-09 19:33] LABS: Zinc 55 mcg/dL (60-130)
[2023-06-11 14:54] LABS: Vitamin B1 8 nmol/L (8-30)
[2023-06-11 17:24] LABS: Vitamin A 36 mcg/dL (38-98)
== END 2023-06-04 14:12 | disposition home or self-care (01) ==
LOC: HO.LAB 14:11
PROVIDERS: PCP Internal Medicine; Visit Provider Physician Assistant Surgical
DX: E50.9 Vitamin A deficiency, unspecified (principal); E51.9 Thiamine deficiency, unspecified; E55.9 Vitamin D deficiency, unspecified; Z90.3 Acquired absence of stomach [part of]
CPT/HCPCS: 36415; 80048; 80061; 82306; 82607; 82728; 82746; 83036; 83525; 83540; 83970; 84425; 84443; 84590; 84630; 85025; 86140; 99212

== ENCOUNTER 2023-06-04 14:11 | Outpatient (AMB) | payer OTHER, SELFPAY ==
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
[2023-06-04 14:23] VITALS: BP 111/72; PULSE 88; TEMP 36.2; O2SAT 98; BMI 29.0
== END 2023-06-04 15:09 | disposition home or self-care (01) ==
PROVIDERS: PCP Internal Medicine; Visit Provider Physician Assistant Surgical
DX: E66.3 Overweight (principal); Z68.29 Body mass index [BMI] 29.0-29.9, adult; Z90.3 Acquired absence of stomach [part of]; Z98.84 Bariatric surgery status
CPT/HCPCS: 99214

== ENCOUNTER → 2023-07-16 11:21 | Outpatient (BNVA) | payer OTHER, SELFPAY | PROVIDERS: PCP Internal Medicine; Visit Provider Dietitian, Registered | DX: E66.9 Obesity, unspecified (principal); Z98.84 Bariatric surgery status; Z71.3 Dietary counseling and surveillance | CPT/HCPCS: 97803 ==

== ENCOUNTER 2025-10-06 08:04 | Outpatient (AMB) | payer OTHER, SELFPAY ==
--- NOTE | 2025-10-06 08:06 | A.OFFPC_ITS ---
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 Presenting for a new patient visit to establish care, discuss fertility, and address multiple health concerns. The patient is trying to conceive and has been for three months. The patient reports recent onset of neck pain that radiates to the back, which is disturbing sleep. The pain was not preceded by exercise or falls, and the patient reports being stressed lately. The patient experiences intermittent dizziness, sometimes while cooking, which is associated with a racing heart. These episodes occur approximately twice a week. She denies any other symptoms with this including chest pain or shortness of breath. [facility] Medical History Constipation Liver fibrosis Pre-eclampsia COVID-19 vaccine series started H. 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 1. Little interest or pleasure in doing things: not at all 2. Feeling down, depressed, or hopeless: not at all 3. Trouble falling or staying asleep, or sleeping too much: several days 4. Feeling tired or having little energy: several days 5. Poor appetite or overeating: not at all 6. Feeling bad about yourself - or that you are a failure or have let yourself or your family down: not at all 7. Trouble concentrating on things, such as reading the newspaper or watching television: not at all 8. Moving or speaking so slowly that other people could have noticed. Or the op posite - being so fidgety or restless that you have been moving around a lot more than usual: not at all 9. Thoughts that you would be better off or of hurting yourself in some way: not at all Total score: 2 Depression Screening Interpretation: Negative Depression Screening Done: Yes Source: Developed by Drs. Terrell Oviedo, Kassandra Zavala, Rubén Ibanez and colleagues, with an educational brady from [employer]. Thrive Questionnaire Date Thrive assessed: 10/04/25 I am a: Patient What is your living situation today?: I have a steady place to live Within the past 12 months, did the food you bought not last and you didn't have the money to get more?: Sometimes True Within the past 12 months, did you worry whether your food would run out before you got money to buy more?: Sometimes True Do you have trouble paying for medicines?: Yes Do you have trouble getting transportation to medical appointments?: No Do you have trouble paying your heating and electricity bill?: Yes Do you have trouble taking care of your child, family member or friend?: No Do you have trouble with day-to-day activities such as bathing, preparing meals, shopping, managing finances, etc.?: No Are you currently unemployed and looking for a job?: Yes Are you interested in more education?: Yes Currently or been in a relationship where the following occur: No concerns reported THRIVE Score: 3 AUDIT C Alcohol Use Questionnaire (AUDIT-C) 1. How often do you have a drink containing alcohol?: Never 3. How often do you have six or more drinks on one occasion?: Never Total Score: 0 DANIEL-7 AMB Questionnaire DANIEL-7 Date DANIEL - 7 assessed: 10/06/25 Feeling nervous, anxious, or on edge: 0 = Not at all Not being able to stop or control worryin = Not at all Worrying too much about different things: 1 = Several days Trouble relaxin = Not at all Being so restless that it is hard to sit still: 1 = Several days Becoming easily annoyed or irritable: 0 = Not at all Feeling afraid as if something awful might happen: 1 = Several days Total DANIEL-7 score (0-4 normal; 5-9 mild; 10-14 moderate; 15-21 severe): 3 Source: Developed by Drs. Terrell Oviedo, Kassandra Zavala, Rubén Ibanez and colleagues, with an educational brady from [employer]. DANIEL-7 Assessment Billing DANIEL-7 Assessment Tool: DANIEL-7 Assessment 16112 Review of Systems Const Denies body aches, Denies chills, Denies fever(s), Denies headache(s) and Denies poor appetite Eyes Reports no additional complaints ENT Denies dizziness and Denies headache(s) Card Denies chest pain, Denies edema, Denies lightheadedness and Denies dyspnea Resp Denies dyspnea GI Denies abdominal pain, Reports constipation, Denies nausea and Denies vomiting Reports no additional complaints Musc Reports no additional complaints and Denies abnormal gait Skin/Breast Reports system reviewed and no additional complaints, except as documented Neuro Denies abnormal gait, Denies dizziness and Denies headache(s) Psych Reports no additional complaints Physical exam (Primary Care) Vital Signs: Last Vital Signs Temp 98.1 F 10/06/25 08:07 Pulse 113 H 10/06/25 08:07 BP 118/80 10/06/25 08:07 Oxygen Delivery Method Room Air 10/06/25 08:07 BMI result Body Mass Index 30.3 Tobacco/Smoking Status: Tobacco use Status Tobacco use date assessed 10/06/25 10/06/25 08:09 Patient Tobacco Use Status Former Tobacco user 10/06/25 08:08 Tobacco use type Cigarette 10/06/25 08:08 e-Cigarette/Vaping Use Currently Using 10/06/25 08:08 PHQ-9: PHQ-9 Score PHQ-9: Total score 2 10/06/25 08:41 Depression Screening Interpretation: Negative Thrive Assessment: Date of Thrive Assessment Date Thrive assessed 10/04/25 10/06/25 08:08 Currently or been in a relationship where the following occur: No concerns reported Const General: cooperative, healthy appearing, comfortable and no acute distress Orientation/consciousness: patient oriented x3 HENMT Head: Yes normocephalic Ears: hearing grossly normal bilaterally General nose exam: Normal external nose present Eyes General: appearance normal, both eyes and all related structures Conjunctivae: conjunctivae normal Neck Other: tenderness to cervical paraspinal muscles Neck: Yes full ROM and Yes no lymphadenopathy Resp Effort & Inspection: normal respiratory effort Auscultation: clear to auscultation bilaterally, no crackles, no rales, no rhonchi and no wheezes Cardio Rate: regular rate Rhythm: regular rhythm Back/Spine/Pelvis Other: tenderness to thoracic paraspinal muscles Skin General skin exam: no rashes or lesions noted Neuro General: patient oriented x3 Gait exam (Neuro): Normal gait present Extrem General: Yes normal to inspection, Yes full ROM and No edema Psych Affect: normal affect Attitude: cooperative Insight: Good insight present (Psych) Judgement: Good judgement present (Psych) Coding Level of Care Code New Pt Level 4 (58510) Diagnoses Infertility counseling Z31.69 Vitamin B1 deficiency E51.9 Vitamin D deficiency E55.9 Vitamin A deficiency E50.9 Steatosis, liver K76.0 Neck pain M54.2 Constipation K59.00 Palpitations R00.2 Additional Codes DANIEL-7 Assessment Billing - DANIEL-7 Assessment Tool: DANIEL-7 Assessment 82380 ([id number]) Assessment & Plan Assessment & Plan (1) Infertility counseling: Code(s): Z31.69 - Encounter for other general counseling and advice on procreation Category: Medical Plan: The patient has been trying to conceive for three months. A referral will be placed to a fertility specialist to help optimize chances of . A referral will also be placed to a employment educational coord for a Pap smear and further assistance with fertility. The patient will receive calls to schedule these appointments. (2) Vitamin B1 deficiency: Code(s): E51.9 - Thiamine deficiency, unspecified Category: Medical Plan: Blood work ordered. (3) Vitamin D deficiency: Code(s): E55.9 - Vitamin D deficiency, unspecified Category: Medical Plan: See above (4) Vitamin A deficiency: Code(s): E50.9 - Vitamin A deficiency, unspecified Category: Medical Plan: See above (5) Steatosis, liver: Code(s): K76.0 - Fatty (change of) liver, not elsewhere classified Category: Medical Plan: Healthy diet and regular exercise is encouraged. PLan for repeat blood work (6) Neck pain: Code(s): M54.2 - Cervicalgia Category: Medical Plan: The patient's neck and back pain is assessed to be muscular in origin, potentially related to tension or posture from stress. The plan includes gentle neck stretches, with instructions provided in Greenlandic. A muscle relaxer is prescribed for bedtime use to aid with sleep and pain, and lidocaine patches are prescribed for daytime use. The use of heating pads is also recommended. (7) Constipation: Code(s): K59.00 - Constipation, unspecified Category: Medical Plan: A plan to manage constipation includes lifestyle modifications such as increasing water intake, exercise, and consuming more high-fiber foods; a handout on high-fiber foods was provided. Additionally, a daily laxative that dissolves in water was prescribed, with instructions to reduce frequency to every other day if diarrhea occurs. (8) Palpitations: Code(s): R00.2 - Palpitations Category: Medical Plan: The patient reports episodes of dizziness and palpitations about twice per week. Given the frequency and a family history of cardiac-related deaths, a 5-day heart monitor will be ordered to evaluate the patient's heart rhythm during these episodes. Patient to keep a log of this palpitations Plan This note was constructed using voice recognition software. While every effort has been made to ensure accuracy and cdl dedicated truck driver, still areas may have been included sometimes these areas may affect the content or meeting of the given symptoms. Total time spent caring for the patient today was 30 minutes. This includes time spent before the visit reviewing the chart, time spent during the visit, and time spent after the visit and documentation. Patient was informed and verbally consented to the use of an ambient scribe for clinic note documentation during this visit. Orders: Orders Vitamin B12 and Folate Today E51.9 - Thiamine deficiency, unspecified, Z13.21 - Encounter for screening for nutritional disorder Vitamin A Today E50.9 - Vitamin A deficiency, unspecified Comprehensive Met. Panel Today K76.0 - Fatty (change of) liver, not elsewhere classified, Z00.00 - Encounter for general adult medical examination without abnormal findings Complete Blood Count Auto Diff Today Z13.0 - Encounter for screening for diseases of the blood and blood-forming organs and certain disorders involving the immune mechanism ECG 5 day holter monitor Today R00.2 - Palpitations Vitamin D 25-OH Total Today E55.9 - Vitamin D deficiency, unspecified, Z13.21 - Encounter for screening for nutritional disorder TSH reflex Free T4 Today Z13.29 - Encounter for screening for other suspected endocrine disorder Lipid Panel Today Z13.220 - Encounter for screening for lipoid disorders Referrals Infertility Reproductive Referral (female) Z31.69 - Encounter for other general counseling and advice on procreation HAND ROLLER ENGRAVER Referral Z12.4 - Encounter for screening for malignant neoplasm of cervix Medications: New cyclobenzaprine 5 mg PO BEDTIME 30 tabs 0RF lidocaine 5% leave on most painful area for up to 12 hrs 1 patch topical DAILY 30 ea 0RF polyethylene glycol 3350 (Miralax) 17 grams PO DAILY 119 grams 0RF
[2025-10-06 08:07] VITALS: BP 118/80; PULSE 113; TEMP 36.7; BMI 30.3
== END 2025-10-06 08:49 | disposition home or self-care (01) ==
LOC: HO.HMCH 08:04
DX: Z31.69 Encounter for other general counseling and advice on procreation (principal); E51.9 Thiamine deficiency, unspecified; E55.9 Vitamin D deficiency, unspecified; E50.9 Vitamin A deficiency, unspecified; K76.0 Fatty (change of) liver, not elsewhere classified; M54.2 Cervicalgia; K59.00 Constipation, unspecified; R00.2 Palpitations

== ENCOUNTER → 2025-10-06 08:04 | Outpatient (BNVA) | payer OTHER, SELFPAY | DX: Z31.69 Encounter for other general counseling and advice on procreation (principal); E51.9 Thiamine deficiency, unspecified; E55.9 Vitamin D deficiency, unspecified; E50.9 Vitamin A deficiency, unspecified; K76.0 Fatty (change of) liver, not elsewhere classified; M54.2 Cervicalgia; K59.00 Constipation, unspecified; R00.2 Palpitations | CPT/HCPCS: 96127; 99202 ==

== ENCOUNTER 2025-10-10 06:26 | Outpatient (REF) | payer OTHER, SELFPAY ==
[2025-10-10 06:37] LABS: MANUAL DIFF FLAG NO
[2025-10-10 07:18] LABS: Hematocrit 37.9 % (37.0-47.0); Hemoglobin 12.5 g/dl (12.0-16.0); Imm Gran Abs Auto 0.03 X10*3/uL (0.00-0.03); Imm Gran Pct Auto 0.4 % (0.0-0.4); Lymphocytes Absolute Auto 2.2 X10*3/uL (1.2-4.9); Mean Corpuscular HGB Conc 33.0 g/dl (31.0-35.0); Mean Corpuscular Hemoglobin 26.8 pg (27.0-33.0); Mean Corpuscular Volume 81.2 fL (80.0-98.0); NRBC Abs Auto 0.000 X10*3/uL (0.0-0.012); NRBC Pct Auto 0.0 /100WBC (0.0-0.2); Platelet Count 332 X10*3/uL (160-400); Red Blood Count 4.67 X10*6/uL (4.20-5.50); White Blood Count 8.4 X10*3/uL (4.8-10.8)
[2025-10-10 07:50] LABS: Alanine Aminotransferase 21 U/L (0-31); Albumin Level 4.9 g/dL (3.5-5.0); Alkaline Phosphatase 68 U/L (39-117); Anion Gap 10 (12-20); Aspartate Amino Transferase 23 U/L (5-31); Blood Urea Nitrogen 10 mg/dL (9-16); Calcium 9.4 mg/dL (8.4-10.2); Carbon Dioxide 29 mmol/L (22-29); Chloride 105 mmol/L (96-108); Cholesterol 180 mg/dL (<200); Estimated Glomerular Filt Rate > 60; HDL Cholesterol 44 mg/dL (>40); Potassium 3.7 mmol/L (3.3-5.1); Sodium 140 mmol/L (135-145); Total Protein 8.0 g/dL (6.5-8.0); Triglycerides 84 mg/dL (<150)
[2025-10-10 08:15] LABS: Folate 14.5 ng/mL (> or = 4.0); Vitamin B12 543 pg/mL (200-900)
== END 2025-10-10 06:27 | disposition home or self-care (01) ==
LOC: HO.LAB 06:26
DX: Z00.00 Encounter for general adult medical examination without abnormal findings (principal); Z13.0 Encounter for screening for diseases of the blood and blood-forming organs and certain disorders involving the immune mechanism; Z13.29 Encounter for screening for other suspected endocrine disorder; Z13.220 Encounter for screening for lipoid disorders; Z13.21 Encounter for screening for nutritional disorder; K76.0 Fatty (change of) liver, not elsewhere classified; E50.9 Vitamin A deficiency, unspecified; E51.9 Thiamine deficiency, unspecified; E55.9 Vitamin D deficiency, unspecified
CPT/HCPCS: 36415; 80053; 80061; 82306; 82607; 82746; 84443; 84590; 85025

== ENCOUNTER 2025-11-06 08:58 | Outpatient (REF) | payer OTHER, SELFPAY | END 2025-11-06 08:59 | disposition home or self-care (01) | LOC: HO.LAB 08:58 | DX: Z34.90 Encounter for supervision of normal pregnancy, unspecified, unspecified trimester (principal) | CPT/HCPCS: 36415; 84702 ==